=== PATIENT | female | born 1990 | race Caucasian/White ===

== ENCOUNTER 2017-10-14 21:50 | Emergency (ER) | payer MEDICAID ==
[~2017-10-14] VITALS: Ht 162.6 cm; Wt 111.4 kg
[2017-10-14 22:04] VITALS: BP 137/96
[2017-10-14] MEDS ORDERED: IBUPROFEN 200 MG TABLET ONE (22:44)
[2017-10-14] MEDS ORDERED: IBUPROFEN 200 MG TABLET PO ONE (23:00)
== END 2017-10-14 22:54 | disposition home or self-care (01) ==
LOC: ED 22:30
DX: L03.114 Cellulitis of left upper limb (principal); E11.9 Type 2 diabetes mellitus without complications; Z90.49 Acquired absence of other specified parts of digestive tract; Z86.14 Personal history of Methicillin resistant Staphylococcus aureus infection
CPT/HCPCS: 99283

== ENCOUNTER 2018-12-14 11:47 | Emergency (ER) | payer MEDICAID ==
[~2018-12-14] VITALS: Ht 162.6 cm; Wt 116.5 kg
[2018-12-14 12:01] VITALS: BP 119/79
[2018-12-14] MEDS ORDERED: ACETAMINOPHEN 500 MG TABLET ONE (12:43)
[2018-12-14] MEDS ORDERED: ACETAMINOPHEN 500 MG TABLET PO ONE (13:00)
== END 2018-12-14 12:55 | disposition home or self-care (01) ==
LOC: ED 12:45
DX: L73.9 Follicular disorder, unspecified (principal); L03.211 Cellulitis of face; E11.9 Type 2 diabetes mellitus without complications; Z90.89 Acquired absence of other organs; Z90.49 Acquired absence of other specified parts of digestive tract
CPT/HCPCS: 82962; 99283

== ENCOUNTER 2019-10-27 15:06 | Emergency (ER) | payer MEDICAID ==
[~2019-10-27] VITALS: Ht 162.6 cm; Wt 106.8 kg
--- NOTE | 2019-10-27 15:35 | NUR ---
PT CAME IN CO OF VAGINAL BLEEDING. PT SAYS "IM 8 WEEKS PREG AND I HAVE BEEN BLEEDING. MOSTLY, THERE IS BLOOD WHEN I WIPE. THE BLOOD SEEMS TO STOP AT NIGHT BUT WHEN I WAKE UP AND GET GOING IN THE MORNING IT STARTS AGAIN". THIS IS PREG #7, 3 MISCARRIGES, 3 TO TERM. LAST MISCARRIGE WAS IN FEBRUARY.
[2019-10-27] MEDS ORDERED: ONDANSETRON ODT 4 MG PO ONE (16:00)
[2019-10-27] MEDS ORDERED: ONDANSETRON ODT 4 MG ONE (16:01)
[2019-10-27 16:12] LABS: BASOPHILS # (AUTO) 0.05 x10^3/uL (0-0.1); BASOPHILS % (AUTO) 1 % (0-1); EOSINOPHILS % (AUTO) 1 % (1-7); LYMPHOCYTES # (AUTO) 3.46 x10^3/uL (1-3.4); LYMPHOCYTES % (AUTO) 41 % (22-44); MD NO; MEAN CORPUSCULAR HEMOGLOBIN 30.6 pg (27.0-34.8); MEAN CORPUSCULAR HGB CONC 34.1 g/dL (32.4-35.8); MEAN CORPUSCULAR VOLUME 89.9 fL (80-100); MEAN PLATELET VOLUME 7.3 fL (7.4-10.4); MONOCYTES # (AUTO) 0.54 x10^3/uL (0.2-0.8); MONOCYTES % (AUTO) 7 % (2-9); NEUTROPHILS # (AUTO) 4.23 x10^3/uL (1.8-6.8); NEUTROPHILS % (AUTO) 50 % (42-75); PLATELET COUNT 301 x10^3/uL (130-400); RED BLOOD COUNT 4.48 x10^6/uL (3.82-5.3); RED CELL DISTRIBUTION WIDTH 13.1 % (9.6-15.2)
[2019-10-27 16:20] LABS: ALBUMIN 3.1 g/dL (3.4-5.0); ANION GAP 6 mmol/L (5-15); CALCIUM 8.7 mg/dL (8.5-10.1); CHLORIDE 105 mmol/L (98-107)
[2019-10-27 16:21] LABS: MICROSCOPIC INDICATED
[2019-10-27 16:21] LABS: CREATININE 0.81 mg/dL (0.55-1.02)
[2019-10-27 16:41] LABS: CULTURE INDICATED? NO
[2019-10-27 17:24] VITALS: BP 116/81
--- NOTE | 2019-10-27 17:24 | NUR ---
PT RESTING IN [facility]. WATCHING TV. AWAITING RHOGAM
== END 2019-10-27 18:12 | disposition home or self-care (01) ==
LOC: ED 16:26
DX: O46.91 Antepartum hemorrhage, unspecified, first trimester (principal); O24.111 Pre-existing type 2 diabetes mellitus, in pregnancy, first trimester; R10.9 Unspecified abdominal pain; E11.9 Type 2 diabetes mellitus without complications; Z3A.01 Less than 8 weeks gestation of pregnancy
CPT/HCPCS: 36415; 76801; 80048; 81001; 82040; 85025; 86850; 86900; 99284; J2790; Q0162

== ENCOUNTER 2019-12-30 15:31 | Emergency (ER) | payer MEDICAID ==
[~2019-12-30] VITALS: Ht 162.6 cm; Wt 109.1 kg
[2019-12-30] MEDS ORDERED: LURA60TA PO (15:46)
[2019-12-30] MEDS ORDERED: INSU100I42 SQ (15:46)
[2019-12-30] MEDS ORDERED: HYDR50TA99 PO (15:46)
[2019-12-30] MEDS ORDERED: INSU100I34 SQ (15:46)
[2019-12-30] MEDS ORDERED: [UNRECOGNIZED DRUG - CODE] PO (15:46)
--- NOTE | 2019-12-30 15:46 | NUR ---
I'M 17 WEEKS AND THE CONTRACTIONS STARTED LAST NOC; 5 MINS APART CURRENTLY. REPORTS "ALOT OF PRESSURE" TO LOWER ABD AND PELVIC REGION. DENIES N/V, VAG BLEED. 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 LMP: 08/28/2019.
--- NOTE | 2019-12-30 15:51 | NUR ---
RHOGAM INJECTION AT 7 WEEKS AT [facility]. VAG BLEED IN BEGINNING OF
[2019-12-30 16:52] LABS: BASOPHILS # (AUTO) 0.02 x10^3/uL (0-0.1); BASOPHILS % (AUTO) 0 % (0-1); EOSINOPHILS % (AUTO) 1 % (1-7); LYMPHOCYTES # (AUTO) 2.82 x10^3/uL (1-3.4); LYMPHOCYTES % (AUTO) 29 % (22-44); MD NO; MEAN CORPUSCULAR HEMOGLOBIN 31.7 pg (27.0-34.8); MEAN CORPUSCULAR HGB CONC 33.6 g/dL (32.4-35.8); MEAN CORPUSCULAR VOLUME 94.2 fL (80-100); MEAN PLATELET VOLUME 7.4 fL (7.4-10.4); MONOCYTES # (AUTO) 0.54 x10^3/uL (0.2-0.8); MONOCYTES % (AUTO) 6 % (2-9); NEUTROPHILS # (AUTO) 6.14 x10^3/uL (1.8-6.8); NEUTROPHILS % (AUTO) 64 % (42-75); PLATELET COUNT 326 x10^3/uL (130-400); RED BLOOD COUNT 4.22 x10^6/uL (3.82-5.3); RED CELL DISTRIBUTION WIDTH 13.4 % (9.6-15.2)
--- NOTE | 2019-12-30 16:52 | NUR ---
PT REPORT TO JASPAL COFFEY RN. U/S AT BS
[2019-12-30 16:56] LABS: ALANINE AMINOTRANSFERASE 16 U/L (12-78); ALBUMIN 2.9 g/dL (3.4-5.0); ANION GAP 8 mmol/L (5-15); CALCIUM 8.8 mg/dL (8.5-10.1); CHLORIDE 107 mmol/L (98-107); CREATININE 0.87 mg/dL (0.55-1.02)
[2019-12-30 16:58] LABS: ALKALINE PHOSPHATASE 62 U/L (45-117); BILIRUBIN,TOTAL 0.3 mg/dL (0.2-1.0); TOTAL PROTEIN 7.1 g/dL (6.4-8.2)
[2019-12-30 17:03] LABS: MICROSCOPIC NOT IND
[2019-12-30 18:12] VITALS: BP 106/69
== END 2019-12-30 18:14 | disposition home or self-care (01) ==
LOC: ED 16:51
DX: O26.892 Other specified pregnancy related conditions, second trimester (principal); R10.2 Pelvic and perineal pain; E11.9 Type 2 diabetes mellitus without complications; Z90.89 Acquired absence of other organs; Z90.49 Acquired absence of other specified parts of digestive tract; Z3A.18 18 weeks gestation of pregnancy
CPT/HCPCS: 36415; 76815; 80053; 81003; 85025; 99284

== ENCOUNTER 2020-05-03 19:56 | Outpatient (CLI) | payer MEDICAID ==
[~2020-05-03] VITALS: Ht 162.6 cm; Wt 116.0 kg
[~2020-05-03 19:56] MED LIST: HYDR50TA99 PO; INSU100I34 SQ; INSU100I42 SQ; LURA60TA PO; [UNRECOGNIZED DRUG - CODE] PO
[2020-05-03 20:27] LABS: MICROSCOPIC INDICATED
[2020-05-03 20:33] LABS: AMPHETAMINE SCREEN, URINE Negative (Negative); CANNABINOID SCREEN, URINE Negative (Negative)
[2020-05-03 20:36] VITALS: BP 132/79
[2020-05-03 20:36] LABS: BARBITURATE SCREEN, URINE Negative (Negative); BENZODIAZEPINE SCREEN, URINE Negative (Negative); COCAINE SCREEN, URINE Negative (Negative); METHADONE SCREEN, URINE Negative (Negative); OPIATE SCREEN, URINE Negative (Negative)
[2020-05-03 21:15] LABS: MEAN CORPUSCULAR HEMOGLOBIN 30.5 pg (27.0-34.8); MEAN CORPUSCULAR HGB CONC 34.2 g/dL (32.4-35.8); MEAN PLATELET VOLUME 8.3 fL (7.4-10.4); PLATELET COUNT 252 x10^3/uL (130-400); RED BLOOD COUNT 4.45 x10^6/uL (3.82-5.3)
== END 2020-05-03 22:12 | disposition home or self-care (01) ==
LOC: LDOP 19:56
PROVIDERS: ATTEND Obstetrics & Gynecology
DX: O62.9 Abnormality of forces of labor, unspecified (principal); Z3A.35 35 weeks gestation of pregnancy
CPT/HCPCS: 36415; 59025; 80307; 81001; 85027; 86592; 86762; 86850; 86870; 86900; 87081; 87086; 87340; 87806; G0475

== ENCOUNTER 2020-05-16 14:59 | Outpatient (CLI) | payer MEDICAID ==
[~2020-05-16] VITALS: Ht 162.6 cm; Wt 116.4 kg
[2020-05-16 15:27] VITALS: BP 125/77
[2020-05-16 16:15] LABS: MICROSCOPIC NOT IND
[2020-05-16 16:22] LABS: AMPHETAMINE SCREEN, URINE Negative (Negative); BARBITURATE SCREEN, URINE Negative (Negative); BENZODIAZEPINE SCREEN, URINE Negative (Negative); CANNABINOID SCREEN, URINE Negative (Negative); COCAINE SCREEN, URINE Negative (Negative); METHADONE SCREEN, URINE Negative (Negative); OPIATE SCREEN, URINE Negative (Negative)
[2020-05-16] MEDS ORDERED: INSULIN LISPRO 100 UNIT/ML, 3ML VIAL SQ-INSULIN SCH (17:30)
[2020-05-16] MEDS ORDERED: ONDANSETRON ODT 4 MG ONE (17:47)
[2020-05-16] MEDS ORDERED: ONDANSETRON 4 MG TABLET PO ONE (18:00)
[2020-05-16] MEDS ORDERED: INSULIN LISPRO 100 UNITS/ML, PEN SQ-INSULIN ONE (18:00)
[2020-05-16] MEDS ORDERED: FOLI20CA PO (18:02)
[2020-05-16] MEDS ORDERED: SERT50TA PO (18:02)
[2020-05-16] MEDS ORDERED: ASPI-515 PO (18:02)
== END 2020-05-16 18:13 | disposition home or self-care (01) ==
LOC: LDOP 14:59
PROVIDERS: ATTEND Obstetrics & Gynecology
DX: O41.8X30 Other specified disorders of amniotic fluid and membranes, third trimester, not applicable or unspecified (principal); F41.9 Anxiety disorder, unspecified; O24.429 Gestational diabetes mellitus in childbirth, unspecified control; O99.213 Obesity complicating pregnancy, third trimester; Z79.899 Other long term (current) drug therapy; Z3A.37 37 weeks gestation of pregnancy
CPT/HCPCS: 59025; 76819; 80307; 81003; 82962; 84112; 96372; J1817; Q0162

== ENCOUNTER 2020-05-19 07:20 | Inpatient (IN) | payer MEDICAID ==
[~2020-05-19] VITALS: Ht 162.6 cm; Wt 117.7 kg
[~2020-05-19 07:20] MED LIST changes: +ASPI-515 PO; +FOLI20CA PO; +SERT50TA PO
[2020-05-19] MEDS ORDERED: ONDANSETRON 2MG/ML, 2ML ONE (11:00)
[2020-05-19] MEDS ORDERED: OXYTOCIN 10 UNITS/ML, 1ML ONE (11:00)
[2020-05-19] MEDS ORDERED: CEFAZOLIN 1,000 MG ONE ×2 (11:00→11:03)
[2020-05-19] MEDS ORDERED: FENTANYL PF 100 MCG/2ML ONE (11:01)
[2020-05-19] MEDS ORDERED: HYDROmorphone 2 MG/ML, 1ML ONE (11:01)
[2020-05-19] MEDS ORDERED: KETOROLAC 30 MG/1 ML ONE (11:03)
[2020-05-19 11:12] VITALS: BP 121/68
[2020-05-19] MEDS ORDERED: METOCLOPRAMIDE 5 MG/ML, 2ML IV ONE (11:30)
[2020-05-19] MEDS ORDERED: SODIUM CITRATE/CITRIC ACID 30 ML UDC PO ONE (11:30)
[2020-05-19] MEDS ORDERED: LACTATED RINGERS 1,000 ML IVBOLUS ONE (11:30)
[2020-05-19] MEDS ORDERED: OMEP-110 PO (11:36)
[2020-05-19 12:13] LABS: BASOPHILS % (AUTO) 0 % (0-1); EOSINOPHILS % (AUTO) 1 % (1-7); LYMPHOCYTES % (AUTO) 32 % (22-44); MEAN CORPUSCULAR HEMOGLOBIN 30.1 pg (27.0-34.8); MEAN CORPUSCULAR HGB CONC 33.2 g/dL (32.4-35.8); MEAN PLATELET VOLUME 8.7 fL (7.4-10.4); MONOCYTES % (AUTO) 7 % (2-9); NEUTROPHILS % (AUTO) 61 % (42-75); PLATELET COUNT 213 x10^3/uL (130-400); RED BLOOD COUNT 4.21 x10^6/uL (3.82-5.3); RED CELL DISTRIBUTION WIDTH 14.1 % (9.6-15.2)
[2020-05-19] MEDS ORDERED: INSU100I11 SQ-INSULIN ×3 (12:13→12:14)
[2020-05-19] MEDS ORDERED: INSU100I13 SQ-INSULIN (12:13)
[2020-05-19] MEDS ORDERED: INSU100V8 SQ (12:13)
[2020-05-19] MEDS ORDERED: DIPH25CA61 PO (12:23)
[2020-05-19] MEDS ORDERED: NEWBORN KIT ONE (12:27)
[2020-05-19 12:28] LABS: AMPHETAMINE SCREEN, URINE Negative (Negative); BARBITURATE SCREEN, URINE Negative (Negative); BENZODIAZEPINE SCREEN, URINE Negative (Negative); CANNABINOID SCREEN, URINE Negative (Negative); COCAINE SCREEN, URINE Negative (Negative); METHADONE SCREEN, URINE Negative (Negative); OPIATE SCREEN, URINE Negative (Negative)
[2020-05-19] MEDS ORDERED: OXYTOCIN 30U/ 0.9% NaCL 500ML 500 ML ONE (12:29)
[2020-05-19 12:31] LABS: MD NO
[2020-05-19] MEDS ORDERED: METOCLOPRAMIDE 5 MG/ML, 2ML ONE (12:37)
[2020-05-19] MEDS: LACTATED RINGERS 1,000 ML IV SCH ×5 (12:49→23:00)
[2020-05-19] MEDS ORDERED: METHYLERGONOVINE 0.2 MG/ML IM PRN (13:00)
[2020-05-19] MEDS ORDERED: MISOPROSTOL 200 MCG TABLET PR PRN (13:00)
[2020-05-19] MEDS ORDERED: BISACODYL 10 MG SUPP PR PRN (13:00)
[2020-05-19] MEDS ORDERED: MORPHINE SULFATE 4 MG/ML, 1ML IVPush PRN (13:00)
[2020-05-19] MEDS ORDERED: RHOGAM FROM BLOOD BANK 1 NOTE EA IM/IV ONE (13:00)
[2020-05-19] MEDS ORDERED: ONDANSETRON 2MG/ML, 2ML IV PRN (13:00)
[2020-05-19] MEDS: KETOROLAC 30 MG/1 ML IV SCH ×2 (13:00→20:32)
[2020-05-19] MEDS ORDERED: morphine SULFATE 10 MG/ML, 1ML IM PRN (13:00)
[2020-05-19] MEDS ORDERED: GLYCERIN ADULT SUPP PR PRN (13:00)
[2020-05-19] MEDS ORDERED: EPHEDRINE 50 MG/ML, 1ML ONE (13:56)
[2020-05-19] MEDS ORDERED: DIPHENHYDRAMINE 50 MG/ML, 1ML ONE (14:01)
[2020-05-19] MEDS: OXYTOCIN 30U/ 0.9% NaCL 500ML 500 ML IV SCH ×2 (14:41→23:00)
[2020-05-19] MEDS: OXYcodone/APAP 5/325MG TABLET PO PRN ×3 (16:19→20:33)
[2020-05-19 16:23] VITALS: BP 115/76
[2020-05-19] MEDS: INSULIN REGULAR 100 UNITS/ML, 3ML VIAL SQ-INSULIN SCH (17:04)
[2020-05-19 19:30] VITALS: BP 113/74
[2020-05-19] MEDS: DOCUSATE 100 MG CAPSULE PO PRN (20:33)
[2020-05-19] MEDS ORDERED: INSULIN NPH HUMAN 100 UNIT/ML, 3ML VIAL SQ-INSULIN SCH (21:00)
[2020-05-19 22:08] LABS: BASOPHILS % (AUTO) 0 % (0-1); EOSINOPHILS % (AUTO) 1 % (1-7); LYMPHOCYTES % (AUTO) 29 % (22-44); MEAN CORPUSCULAR HGB CONC 33.5 g/dL (32.4-35.8); MEAN PLATELET VOLUME 8.6 fL (7.4-10.4); MONOCYTES % (AUTO) 8 % (2-9); NEUTROPHILS % (AUTO) 63 % (42-75); PLATELET COUNT 186 x10^3/uL (130-400); RED BLOOD COUNT 3.84 x10^6/uL (3.82-5.3); RED CELL DISTRIBUTION WIDTH 14.1 % (9.6-15.2)
[2020-05-19 22:11] LABS: MD NO
[2020-05-19] MEDS: LURASIDONE 20 MG TABLET PO SCH (22:32)
[2020-05-20 00:20] VITALS: BP 114/75
[2020-05-20] MEDS: LACTATED RINGERS 1,000 ML IV SCH ×9 (00:30→21:00)
[2020-05-20] MEDS: OXYcodone/APAP 5/325MG TABLET PO PRN ×6 (00:35→20:53)
[2020-05-20] MEDS: KETOROLAC 30 MG/1 ML IV SCH ×4 (02:38→20:52)
[2020-05-20 03:45] VITALS: BP 118/79
[2020-05-20] MEDS: SIMETHICONE 80 MG CHEW TAB PO PRN ×2 (04:51→20:52)
[2020-05-20 07:00] VITALS: BP 104/69
[2020-05-20] MEDS: INSULIN REGULAR 100 UNITS/ML, 3ML VIAL SQ-INSULIN SCH ×3 (07:46→16:20)
[2020-05-20] MEDS: DOCUSATE 100 MG CAPSULE PO PRN ×2 (08:37→20:52)
[2020-05-20] MEDS: SERTRALINE 50MG TABLET PO SCH (08:37)
[2020-05-20] MEDS: LURASIDONE 20 MG TABLET PO SCH ×2 (08:37→21:37)
[2020-05-20] MEDS: OXYTOCIN 30U/ 0.9% NaCL 500ML 500 ML IV SCH ×2 (09:00→19:00)
[2020-05-20] MEDS: PRENATAL VIT/IRON/FA 1 EACH TABLET PO SCH (09:00)
[2020-05-20] MEDS: OMEPRAZOLE 20 MG CAPSULE.DR PO SCH (10:51)
[2020-05-20 12:10] VITALS: BP 105/70
[2020-05-20 20:30] VITALS: BP 106/67
[2020-05-20] MEDS ORDERED: INSULIN NPH HUMAN 100 UNIT/ML, 3ML VIAL SQ-INSULIN SCH (21:00)
[2020-05-21] MEDS: SIMETHICONE 80 MG CHEW TAB PO PRN (01:23)
[2020-05-21] MEDS: OXYcodone/APAP 5/325MG TABLET PO PRN ×4 (01:24→14:10)
[2020-05-21] MEDS: KETOROLAC 30 MG/1 ML IV SCH ×2 (02:46→09:31)
[2020-05-21] MEDS: LACTATED RINGERS 1,000 ML IV SCH ×3 (03:30→05:00)
[2020-05-21] MEDS: OXYTOCIN 30U/ 0.9% NaCL 500ML 500 ML IV SCH (05:00)
[2020-05-21 07:30] VITALS: BP 122/80
[2020-05-21] MEDS: DOCUSATE 100 MG CAPSULE PO PRN (07:42)
[2020-05-21] MEDS: PRENATAL VIT/IRON/FA 1 EACH TABLET PO SCH (07:42)
[2020-05-21] MEDS: INSULIN REGULAR 100 UNITS/ML, 3ML VIAL SQ-INSULIN SCH ×2 (07:42→11:48)
[2020-05-21] MEDS: SERTRALINE 50MG TABLET PO SCH (07:42)
[2020-05-21] MEDS: OMEPRAZOLE 20 MG CAPSULE.DR PO SCH (07:42)
[2020-05-21] MEDS: LURASIDONE 20 MG TABLET PO SCH (09:31)
[2020-05-21] MEDS ORDERED: IBUP-1222 PO (13:53)
[2020-05-21] MEDS ORDERED: OXYC-302 PO (13:53)
[2020-05-21] MEDS ORDERED: DIPH,PERTUSS(ACELL),TET VAC/PF NC IM-VACC ONE ×2 (14:04→14:30)
== END 2020-05-21 14:23 | disposition home or self-care (01) | DRG 788 ==
LOC: LDIP 11:02 → 2NW 16:51
PROVIDERS: ADMIT Obstetrics & Gynecology; ATTEND Obstetrics & Gynecology
PROC: 10D00Z1 Extraction of Products of Conception, Low, Open Approach (ICD-10-PCS; principal; 2020-05-19)
PROC: 3E0234Z Introduction of Serum, Toxoid and Vaccine into Muscle, Percutaneous Approach (ICD-10-PCS; 2020-05-21)
DX: O24.429 Gestational diabetes mellitus in childbirth, unspecified control (principal); Z3A.37 37 weeks gestation of pregnancy; Z37.0 Single live birth; O99.344 Other mental disorders complicating childbirth; O99.214 Obesity complicating childbirth; O34.211 Maternal care for low transverse scar from previous cesarean delivery; F42.9 Obsessive-compulsive disorder, unspecified; E66.01 Morbid (severe) obesity due to excess calories; F41.0 Panic disorder [episodic paroxysmal anxiety]; F41.9 Anxiety disorder, unspecified; F31.9 Bipolar disorder, unspecified; Z20.828 Contact with and (suspected) exposure to other viral communicable diseases; Z23 Encounter for immunization
CPT/HCPCS: 36415; 80307; 82962; 85025; 85461; 86592; 86850; 86870; 86900; 86902; 86922; 86923; 87635; 90715; G0378; J0690; J1170; J1815; J1885; J2405; J2790; J3010; J1200; J2590; J2765; J7120